=== PATIENT | female | born 1980 | race Caucasian/White ===

== ENCOUNTER 2017-08-04 01:25 | Inpatient (IN) | payer MEDICAID ==
[~2017-08-04] VITALS: Ht 154.9 cm; Wt 61.0 kg
[2017-08-04] MEDS ORDERED: PREN1TAB80 PO (01:31)
[2017-08-04 02:05] LABS: BASOPHILS % (AUTO) 0.7 % (0.0-2.0); EOSINOPHILS % (AUTO) 0.3 % (1.0-6.0); HEMOGLOBIN 11.7 g/dL (12.0-16.0); LYMPHOCYTES # (AUTO) 2.1 K/uL (1.0-4.8); LYMPHOCYTES % (AUTO) 13.7 % (22.0-44.0); MEAN CORPUSCULAR HEMOGLOBIN 32.3 pg (26.0-34.0); MEAN CORPUSCULAR HGB CONC 34.4 G/dL (31.0-37.0); MEAN CORPUSCULAR VOLUME 94 fL (80-100); MONOCYTES % (AUTO) 6.4 % (2.0-9.0); NEUTROPHILS % (AUTO) 78.9 % (40.0-70.0); PLATELET COUNT (AUTO) 327 K/uL (150-450); RED BLOOD CELL COUNT(AUTO) 3.63 MIL/uL (4.00-5.20); RED CELL DISTRIBUTION WIDTH 13.4 % (11.5-14.5); WHITE BLOOD COUNT (AUTO) 15.3 K/uL (4.5-11.0)
[2017-08-04] MEDS ORDERED: ACETAMINOPHEN 325 MG TABLET PO ONE (02:30)
[2017-08-04] MEDS ORDERED: MORPHINE SULFATE 4 MG/ML SYRINGE IVP ONE (03:00)
[2017-08-04] MEDS ORDERED: ONDANSETRON HCL 4 MG/2 ML VIAL IVP ONE (03:15)
[2017-08-04 03:58] VITALS: BP 107/69
[2017-08-04] MEDS ORDERED: TERBUTALINE SULFATE 1 MG/ML VIAL SQ PRN (05:15)
[2017-08-04] MEDS ORDERED: CITRIC ACID/SODIUM CITRATE 30 ML SOLUTION UDCUP PO PRN (05:15)
[2017-08-04] MEDS ORDERED: METOCLOPRAMIDE HCL 5 MG/ML 2 ML VIAL IVP PRN (05:15)
[2017-08-04] MEDS: RINGERS SOLUTION,LACTATED 1,000 ML IV SCH ×2 (05:51→13:05)
[2017-08-04] MEDS ORDERED: MISOPROSTOL 100 MCG TABLET VG ONE (06:00)
[2017-08-04] MEDS ORDERED: OXYTOCIN 30 UNITS/LACT RINGERS 500 ML IV ONE (07:22)
[2017-08-04] MEDS: FentaNYL CITRATE-PF 100 MCG/2 ML VIAL IVP PRN ×5 (07:31→13:57)
[2017-08-04] MEDS ORDERED: LANOLIN 7 GM OINTMENT TP ONE (07:45)
[2017-08-04] MEDS: MISOPROSTOL 100 MCG TABLET VG SCH ×2 (09:59→12:35)
[2017-08-04] MEDS ORDERED: BENZOCAINE 20%/MENTHOL 56 GM SPRAY CANISTER TP PRN (14:15)
[2017-08-04] MEDS ORDERED: LANOLIN 7 GM OINTMENT TP PRN (14:15)
[2017-08-04] MEDS ORDERED: GLYCERIN/WITCH HAZEL LEAF 40 PADS JAR TP PRN (14:15)
[2017-08-04] MEDS ORDERED: ACETAMINOPHEN/CODEINE 300-30 MG TABLET PO PRN ×2 (14:15)
[2017-08-04] MEDS ORDERED: IBUPROFEN 800 MG TABLET PO SCH (15:00)
[2017-08-04 17:25] LABS: RUBELLA SCREEN (IGG) IMMUNE (IMMUNE)
[2017-08-04] MEDS ORDERED: MAGNESIUM HYDROXIDE SUSPENSION 30 ML UDCUP PO SCH (21:00)
[2017-08-05] MEDS ORDERED: IBUP-2070 PO (11:34)
[2017-08-05] MEDS ORDERED: DSS100 PO (11:35)
[2017-08-05] MEDS ORDERED: FERR-89 PO (11:35)
== END 2017-08-05 12:10 | disposition home or self-care (01) | DRG 560 ==
LOC: EMS 01:27 → INTOOBSV 04:01 → 4S 04:01 → UNDOADMOB 04:01 → 4S 04:01 → OBSVTOIN 05:06
PROVIDERS: ADMIT Obstetrics & Gynecology; ATTEND Obstetrics & Gynecology
PROC: 10E0XZZ Delivery of Products of Conception, External Approach (ICD-10-PCS; principal; 2017-08-04)
DX: O36.4XX0 Maternal care for intrauterine death, not applicable or unspecified (principal); O32.2XX0 Maternal care for transverse and oblique lie, not applicable or unspecified; Z37.1 Single stillbirth; Z3A.21 21 weeks gestation of pregnancy
CPT/HCPCS: 76805; 86592; 86762; 86850; 86900; 86901; 87340; 96374; 96375; 99285; J2270; J2405; J3010; J7120